=== PATIENT | female | born 1995 | race Hispanic/Latino ===

== ENCOUNTER 2016-12-20 09:59 | Inpatient (IN) | payer MEDICAID ==
[2016-12-20 10:03] VITALS: BMI 26.6
[2016-12-20 11:21] LABS: BASO # 0.1 K/uL (0.0-0.2); BASO % 0.6 % (0.0-2.0); EOS # 0.1 K/uL (0.0-0.7); HEMATOCRIT 44.4 % (34.0-47.0); LYMPH # 2.4 K/uL (1.0-4.3); LYMPH % 27.2 % (20.0-40.0); MEAN CELL VOLUME 90.5 fl (81.0-99.0); MEAN CORPUSCULAR HEMOGLOBIN 29.9 pg (27.0-31.0); MEAN PLATELET VOLUME 9.9 fl (7.2-11.7); MONO # 0.6 K/uL (0.0-0.8); MONO % 6.7 % (0.0-10.0); NEUT # 5.8 K/uL (1.8-7.0); NEUT % 64.5 % (50.0-75.0); RED CELL DISTRIBUTION WIDTH 13.6 % (11.5-14.5); WHITE BLOOD COUNT 8.9 K/uL (4.8-10.8)
[2016-12-20 11:32] LABS: ALB/GLOB RATIO 1.2 (1.0-2.1); ALCOHOL SERUM < 10 mg/dl (0-10); ALKALINE PHOSPHATASE 74 U/L (38-126); ALT/SGPT 26 U/L (9-52); AST/SGOT 31 U/L (14-36); BILIRUBIN,TOTAL 0.7 mg/dl (0.2-1.3); BLOOD UREA NITROGEN 11 mg/dl (7-17); CALCIUM 9.8 mg/dL (8.4-10.2); CARBON DIOXIDE 23 mmol/L (22-30); CHLORIDE 104 mmol/L (98-107); GFR AFRICAN-AMERICAN > 60; GLUCOSE,RANDOM 91 mg/dL (65-105); SODIUM 141 mmol/l (132-148); TOTAL PROTEIN 8.9 G/DL (6.3-8.2)
[2016-12-20 11:34] LABS: RBC URINE 1 /hpf (0-3); URINE BACTERIA RARE (<OCC); URINE BILIRUBIN NEGATIVE (NEGATIVE); URINE BLOOD NEGATIVE (NEGATIVE); URINE COLOR YELLOW (YELLOW); URINE GLUCOSE (UA) NEG (Normal); URINE KETONE NEGATIVE (NEGATIVE); URINE PROTEIN NEGATIVE (NEGATIVE); URINE UROBILINOGEN 0.2-1.0 mg/dL (0.2-1.0); WBC URINE 1 /hpf (0-5)
[2016-12-20 11:34] LABS: POTASSIUM 4.6 MMOL/L (3.6-5.0)
[2016-12-20 11:35] LABS: URINE LEUKOCYTE ESTERASE NEGATIVE Leu/uL (Negative)
[2016-12-20] MEDS ORDERED: Gadodiamide 287 MG/ML VIAL (15ML) IV ONE (11:56)
--- NOTE | 2016-12-20 12:10 | CP.PCM.CON ---
History of Present Illness - History of Present Illness History of Present Illness: Ms. Chester is a 21-year-old woman with a past medical history of migraine headaches, who states that she woke up [place] morning at around 6 AM with blurry vision. She also complains of having an associated headache located in the frontal region that is throbbing, and was similar to her previous headaches. She has associated nausea, gait instability and complains of generalized weakness. She denied vomiting, double vision, chest pain, shortness of breath, abdominal pain, GI discomfort, focal weakness, sensory changes, joint pain, recent travel, fever or changes in her diet. Review of Systems - Constitutional Constitutional: Headache, Lethargy, Weakness. absent: As Per HPI, Anorexia, Chills, Daytime Sleepiness, Excessive Sweating, Fatigue, Fever, Frequent Falls, Increased Appetite, Malaise, Night Sweats, Snoring, Sleep Apnea, Weight Gain, Weight Loss, Other - EENT Eyes: absent: As Per HPI, Blind Spots, Blurred Vision, Change in Vision, Decreased Night Vision, Diplopia, Discharge, Dry Eye, Exophthalmos, Floaters, Irritation, Itchy Eyes, Loss of Peripheral Vision, Pain, Photophobia, Requires Corrective Lenses, Sees Flashes, Spots in Vision, Tunnel Vision, Other Visual Disturbances, Loss of Vision, Other Ears: absent: As Per HPI, Decreased Hearing, Ear Discharge, Ear Pain, Tinnitus, Abnormal Hearing, Disequilibrium, Dizziness, Other Nose/Mouth/Throat: absent: As Per HPI, Epistaxis, Nasal Congestion, Nasal Discharge, Nasal Obstruction, Nasal Trauma, Nose Pain, Post Nasal Drip, Sinus Pain, Sinus Pressure, Bleeding Gums, Change in Voice, Dental Pain, Dry Mouth, Dysphagia, Halitosis, Hoarsness, Lip Swelling, Mouth Lesions, Mouth Pain, Odynophagia, Sore Throat, Throat Swelling, Tongue Swelling, Facial Pain, Neck Pain, Neck Mass, Other - Cardiovascular Cardiovascular: absent: As Per HPI, Acrocyanosis, Chest Pain, Chest Pain at Rest , Chest Pain with Activity, Claudication, Diaphoresis, Dyspnea, Dyspnea on Exertion, Edema, Irregular Heart Rhythm, Pain Radiating to Arm/Neck/Jaw, Leg Edema, Leg Ulcers, Lightheadedness, Orthopnea, Palpitations, Paroxysmal Nocturnal Dyspnea, Pedal Edema, Radiating Pain, Rapid Heart Rate, Slow Heart Rate, Syncope, Other - Respiratory Respiratory: absent: As Per HPI, Cough, Dyspnea, Hemoptysis, Dyspnea on Exertion , Wheezing, Snoring, Stridor, Pain on Inspiration, Chest Congestion, Excessive Mucous Production, Change in Mucous Color, Pain with Coughing, Other - Gastrointestinal Gastrointestinal: Nausea - Genitourinary Genitourinary: absent: As Per HPI, Change in Urinary Stream, Difficulty Urinating, Dysuria, Flank Pain, Hematuria, Pyuria, Nocturia, Urinary Incontinence, Urinary Frequency, Urinary Hesitance, Urinary Urgency, Voiding Freq/Small Amts, Freq UTI, Hx Renal/Bladder Calculi, Hx /Renal Surgery, Bladder Distension, Other - Musculoskeletal Musculoskeletal: absent: As Per HPI, Abnormal Gait, Arthralgias, Atrophy, Back Pain, Deformity, Joint Swelling, Limited Range of Motion, Loss of Height, Muscle Cramps, Muscle Weakness, Myalgias, Neck Pain, Numbness, Radiating Pain into Limb, Stiffness, Tingling, Other - Integumentary Integumentary: absent: As Per HPI, Acne, Alopecia, Bleeding Lesions, Change in Hair, Change in Nails, Change in Pigmentation, Changing Lesions, Dry Skin, Erythema, Furuncle, Hirsutism, Lesions, New Lesions, Non-Healing Lesions, Photosensitivity, Pruritus, Rash, Skin Pain, Skin Ulcer, Sores, Striae, Swelling , Unusual Bruising, Wounds, Jaundice, Other - Neurological Neurological: As Per HPI - Psychiatric Psychiatric: absent: As Per HPI, Abnormal Sleep Pattern, Anhedonia, Anxiety, Auditory Hallucinations, Behavioral Changes, Change in Appetite, Change in Libido, Confusion, Depression, Difficulty Concentrating, Hallucinations, Homicidal Ideation, Hopelessness, Irritability, Memory Loss, Mood Swings, Panic Attacks, Paranoia, Suicidal Ideation, Visual Hallucinations, Tactile Hallucinations, Other - Endocrine Endocrine: absent: As Per HPI, Change in Body Appearance, Change in Libido, Cold Intolorance, Deepening of Voice, Excessive Sweating, Fatigue, Flushing, Heat Intolorance, Increase in Ring/Shoe/Hat Size, Palpitations, Polydipsia, Polyphagia, Polyuria, Other - Hematologic/Lymphatic Hematologic: absent: As Per HPI, Easy Bleeding, Easy Bruising, Lymphadenopathy, Other Past Patient History - Past Social History Smoking Status: Never Smoked - CARDIAC Hx Cardiac Disorders: No - PULMONARY Hx Respiratory Disorders: No - NEUROLOGICAL Hx Neurological Disorder: No - HEENT Hx HEENT Problems: No - RENAL Hx Chronic Kidney Disease: No - ENDOCRINE/METABOLIC Hx Endocrine Disorders: No - HEMATOLOGICAL/ONCOLOGICAL Hx Blood Disorders: No - INTEGUMENTARY Hx Dermatological Problems: No - MUSCULOSKELETAL/RHEUMATOLOGICAL Hx Musculoskeletal Disorders: No - GASTROINTESTINAL Hx Gastrointestinal Disorders: No - GENITOURINARY/GYNECOLOGICAL Hx Genitourinary Disorders: No - PSYCHIATRIC Hx Psychophysiologic Disorder: No Hx Substance Use: No - SURGICAL HISTORY Hx Surgeries: No - ANESTHESIA Hx Anesthesia: No Meds Allergies/Adverse Reactions: Allergies Allergy/AdvReac Type Severity Reaction Status Date / Time No Known Allergies Allergy Verified 12/20/16 10:13 Physical Exam - Constitutional Appears: Well - Head Exam Head Exam: ATRAUMATIC, NORMAL INSPECTION, NORMOCEPHALIC - Eye Exam Additional comments: Left eye deficits with conjugate gaze. - Neck Exam Neck exam: Positive for: Normal Inspection - Respiratory Exam Respiratory Exam: Clear to Auscultation Bilateral, NORMAL BREATHING PATTERN - Cardiovascular Exam Cardiovascular Exam: REGULAR RHYTHM, +S1, +S2 - GI/Abdominal Exam GI & Abdominal Exam: Normal Bowel Sounds, Soft. absent: Tenderness - Rectal Exam Rectal Exam: Deferred - Extremities Exam Extremities exam: Positive for: normal inspection - Back Exam Back exam: NORMAL INSPECTION - Neurological Exam Neurological exam: Abnormal Gait, Oriented x3, Reflexes Normal - Expanded Neurological Exam Expanded Patient oriented to: person, place, time Cranial nerves: EOM's Intact: Abnormal Left, Facial Palsey w/Forehead Movement: Abnormal Left, Facial Sensation: Normal Ataxia: No Cerebellar Function: Finger to Nose: Abnormal Right, Heel to [place]: Normal Upper motor neuron: Babinski Sign: Normal, Simón Neglect: Normal Sensory exam: Lower Extremity Light Touch: Normal, Lower Extremity Pin Prick: Normal, Upper Extremity Light Touch: Normal, Upper Extremity Pin Prick: Normal Neuro motor strength exam: Left Upper Extremity: 5, Right Upper Extremity: 5, Left Lower Extremity: 5, Right Lower Extremity: 5 DTR: Achilles Tendon Left: 2+, Achilles Tendon Right: 2+, Bicep Left: 2+, Bicep Right: 2+, Brachioradialis Left: 2+, Brachioradialis Right: 2+, Patellar Left: 2 +, Patellar Right: 2+, Tricep Left: 2+, Tricep Right: 2+ - Psychiatric Exam Psychiatric exam: Normal Affect, Normal Mood - Skin Skin Exam: Dry, Intact, Normal Color, Warm Results - Vital Signs Recent Vital Signs: Last Vital Signs Temp 99.7 F H 12/20/16 10:01 Pulse 95 H 12/20/16 10:01 Resp 20 12/20/16 10:01 BP 142/83 12/20/16 10:01 Pulse Ox 99 12/20/16 10:01 - Labs Result Diagrams: 12/20/16 10:05 12/20/16 11:00 Labs: Laboratory Results - last 24 hr 12/20/16 12/20/16 12/20/16 10:05 10:05 11:00 WBC 8.9 RBC 4.90 Hgb 14.7 Hct 44.4 MCV 90.5 MCH 29.9 MCHC 33.0 RDW 13.6 Plt Count 309 MPV 9.9 Neut % (Auto) 64.5 Lymph % (Auto) 27.2 [place] % (Auto) 6.7 Eos % (Auto) 1.0 Baso % (Auto) 0.6 Neut # 5.8 Lymph # 2.4 [place] # 0.6 Eos # 0.1 Baso # 0.1 Sodium 141 Potassium 4.6 Chloride 104 Carbon Dioxide 23 Anion Gap 19 BUN 11 Creatinine 0.7 Est GFR ( Amer) > 60 Est GFR (Non-Af Amer) > 60 Random Glucose 91 Calcium 9.8 Total Bilirubin 0.7 AST 31 ALT 26 Alkaline Phosphatase 74 Total Protein 8.9 H Albumin 4.8 Globulin 4.1 H Albumin/Globulin Ratio 1.2 Urine Color Yellow Urine Clarity Slighty-cloudy Urine pH 7.0 Ur Specific [place] 1.015 Urine Protein Negative Urine Glucose (UA) Neg Urine Ketones Negative Urine Blood Negative Urine Nitrate Negative Urine Bilirubin Negative Urine Urobilinogen 0.2-1.0 Ur Leukocyte Esterase Negative Urine RBC (Auto) 1 Urine Microscopic WBC 1 Ur Squamous Epith Cells 1 Urine Bacteria Rare Urine Opiates Screen Urine Methadone Screen Ur Barbiturates Screen Ur Phencyclidine Scrn Ur Amphetamines Screen U Benzodiazepines Scrn U Oth Cocaine Metabols U Cannabinoids Screen Alcohol, Quantitative < 10 12/20/16 11:00 WBC RBC Hgb Hct MCV MCH MCHC RDW Plt Count MPV Neut % (Auto) Lymph % (Auto) [place] % (Auto) Eos % (Auto) Baso % (Auto) Neut # Lymph # [place] # Eos # Baso # Sodium Potassium Chloride Carbon Dioxide Anion Gap BUN Creatinine Est GFR ( Amer) Est GFR (Non-Af Amer) Random Glucose Calcium Total Bilirubin AST ALT Alkaline Phosphatase Total Protein Albumin Globulin Albumin/Globulin Ratio Urine Color Urine Clarity Urine pH Ur Specific [place] Urine Protein Urine Glucose (UA) Urine Ketones Urine Blood Urine Nitrate Urine Bilirubin Urine Urobilinogen Ur Leukocyte Esterase Urine RBC (Auto) Urine Microscopic WBC Ur Squamous Epith Cells Urine Bacteria Urine Opiates Screen Negative Urine Methadone Screen Negative Ur Barbiturates Screen Negative Ur Phencyclidine Scrn Negative Ur Amphetamines Screen Negative U Benzodiazepines Scrn Negative U Oth Cocaine Metabols Negative U Cannabinoids Screen Negative Alcohol, Quantitative Assessment & Plan (1) Blurry vision Assessment and Plan: She has difficulty with conjugate gaze, which is concerning for possible involvement of the pontine region and MLF. She also complaints of feeling unstable and having generalized weakness. We will evaluate for an inflammatory , demyelinating condition with an MRI of the brain with and without contrast. If negative, this can be related to her migraine headache and be a complicated migraine syndrome, which we will treat accordingly. Status: Acute (2) Headache Status: Acute Priority: High (3) Gait instability Status: Acute Priority: High (4) Nausea Status: Acute Priority: High
--- NOTE | 2016-12-20 13:11 | MRI ---
PROCEDURE: MRI BRAIN WITH AND WITHOUT CONTRAST HISTORY: blurry vision, nystagmus COMPARISON: None. TECHNIQUE: Multiplanar, multisequence MR images of the brain were obtained with and without intravenous contrast enhancement. FINDINGS: HEMORRHAGE: None DWI: No evidence of an acute or early subacute infarction. BRAIN PARENCHYMA: No mass,mass effect or edema. There are multifocal white matter signal abnormalities the largest in the left frontal subcortical white matter measuring 8 millimeters. An additional lesion measuring 7 millimeters is present at the left parietal and great white matter junction. There is also a lesion noted in the right cerebellar peduncle measuring 3 millimeters. ENHANCEMENT: No abnormal intracranial enhancement. VENTRICLES: Unremarkable. No hydrocephalus. CRANIUM: Unremarkable. ORBITS: Grossly unremarkable. PARANASAL SINUSES/MASTOIDS: Clear VASCULAR SYSTEM: Skull base flow voids intact. OTHER FINDINGS: None . IMPRESSION: Multiple supra tentorial as well as infratentorial white matter lesions, statistically most likely secondary to multiple sclerosis in a patient of this age group.
[2016-12-20] MEDS ORDERED: Lidocaine 1% Inj (20ml) IJ ONE (14:47)
[2016-12-20 15:28] LABS: FLUID TYPE SPINAL FLUID
--- NOTE | 2016-12-20 15:30 | ED PDOC ---
HPI: General Adult Time Seen by Provider: 12/20/16 10:13 Chief Complaint (Nursing): Dizziness/Lightheaded Chief Complaint (Provider): dizziness, blurry vision History Per: Patient History/Exam Limitations: no limitations Onset/Duration Of Symptoms: Days (3), Sudden Onset Similar Symptoms Previously: none Additional Complaint(s): 21yo female prior well sent by PMD Dr Miranda into ED for persistent dizziness associated with blurry vision- states vision is entire visual field, denies diplopia, tinnutus, fever, trauma or neck pain. States this morning had difficult time walking due to visual deficit but denies falls, incoordination, change in speech or swallowing. Denies prior history of similar. Does admit to mild headache. Currently a [employer] student. Past Medical History Reviewed: Historical Data, Nursing Documentation, Vital Signs Vital Signs: Last Vital Signs Temp 98.6 F 12/20/16 13:15 Pulse 75 12/20/16 13:15 Resp 16 12/20/16 13:15 BP 124/74 12/20/16 13:15 Pulse Ox 99 12/20/16 13:15 - Medical History PMH: No Chronic Diseases Denies: Chronic Kidney Disease - Surgical History Surgical History: No Surg Hx - Family History Family History: States: Other - Living Arrangements Living Arrangements: With Family - Social History Current smoker - smoking cessation education provided: No Drugs: Denies - Home Medications Home Medications: Ambulatory Orders Medication Instructions Recorded No Known Home Med 12/20/16 - Allergies Allergies/Adverse Reactions: Allergies Allergy/AdvReac Type Severity Reaction Status Date / Time No Known Allergies Allergy Verified 12/20/16 10:13 Review of Systems ROS Statement: Except As Marked, All Systems Reviewed And Found Negative Constitutional: Negative for: Fever, Chills Eyes: Positive for: Vision Change. Negative for: Pain, Eyelid Inflammation, Redness ENT: Negative for: Ear Pain, Nose Discharge, Throat Pain, Throat Swelling Cardiovascular: Negative for: Chest Pain, Palpitations Respiratory: Negative for: Cough, Shortness of Breath Gastrointestinal: Negative for: Nausea, Vomiting, Abdominal Pain, Diarrhea Genitourinary Female: Negative for: Frequency Musculoskeletal: Negative for: Neck Pain, Shoulder Pain, Leg Pain Skin: Negative for: Rash, Lesions, Jaundice Neurological: Positive for: Headache, Dizziness. Negative for: Weakness, Numbness Psych: Negative for: Anxiety, Depression Physical Exam - Reviewed Nursing Documentation Reviewed: Yes Vital Signs Reviewed: Yes - Physical Exam Appears: Positive for: Well, Non-toxic, No Acute Distress Head Exam: Positive for: ATRAUMATIC, NORMAL INSPECTION, NORMOCEPHALIC Skin: Positive for: Normal Color, Warm, DRY Eye Exam: Positive for: EOMI, Normal appearance, PERRL ENT: Positive for: Normal ENT Inspection Neck: Positive for: Normal, Painless ROM Cardiovascular/Chest: Positive for: Regular Rate, Rhythm Respiratory: Positive for: CNT, Normal Breath Sounds Gastrointestinal/Abdominal: Positive for: Bowel Sounds, Soft. Negative for: Tenderness Back: Positive for: Normal Inspection Extremity: Positive for: Normal ROM DTR - Knee (R): 1+ DTR - Knee (L): 1+ Neurologic/Psych: Positive for: Alert, Oriented, Cerebellar Tests (intact finger to nose and heel to kenny b/l), Other (?conjugate gaze palsy L). Negative for: regular senior care provider II-XII (? conjugate gaze palsy vs nystagmus), Motor/Sensory Deficits, Facial Droop - Laboratory Results Result Diagrams: 12/20/16 10:05 12/20/16 11:00 - ECG O2 Sat by Pulse Oximetry: 99 Medical Decision Making Medical Decision Making: workup initiated for acute visual disturbance, d/w Dr Danielson neurology who recommended MRI w/ wo contrast. Labs reviewed, mild elev serum protein\ MRI results reviewed, Dr Danielson saw patient in ED and discussed MRI results w patient- possible multiple sclerosis. LP recommended by neurology. Procedure note: Lumbar puncture Time out performed Consent obtained and signed, witnessed, in chart after risks/benefits explained. Sterile technique used throughout, chlorhexidine then betadine prep. Lidocaine 1% 6ml infiltrated into L3L4 interspace Spinal needle 20g inserted and on second attempt CSF obtained, clear, 4 tubes obtained, stylet replaced and needle withdrawn. Placed supine. Dr Danielson placed orders for CSF Care transferred to PMD Dr Miranda and Dr Danielson neuro. Admit med surg. Disposition - Clinical Impression Clinical Impression: Multiple sclerosis, Vision loss - Patient ED Disposition Is Patient to be Admitted: Yes Counseled Patient/Family Regarding: Studies Performed, Diagnosis - Disposition Disposition Time: 13:01 Condition: FAIR - Pt Status Changed To: Hospital Disposition Of: Inpatient - Admit Certification Admit to Inpatient:: After my assessment, the patient will require hospitalization for at least two midnights. This is because of the severity of symptoms shown, intensity of services needed, and/or the medical risk in this patient being treated as an outpatient. - POA Present On Arrival: None
[2016-12-20] MEDS: methylPREDNISolone 1 GM in Sodium Chloride 0.9% 250 ML IV SCH (16:04)
[2016-12-20 16:50] LABS: CSF COMMENT CLEAR
[2016-12-20 18:01] LABS: CSF NEUTROPHIL 0 % (0-0); CSF TOTAL COUNT 2 (0-0)
--- NOTE | 2016-12-21 08:43 | CARD ---
APPROVED REPORT EKG Measurement Heart [id number] <Conclusion> Normal sinus rhythm with sinus arrhythmia Normal ECG
[2016-12-21] MEDS ORDERED: Gadodiamide 287 MG/ML VIAL (15ML) IV ONE (10:11)
--- NOTE | 2016-12-21 10:16 | HP ---
HISTORY OF PRESENT ILLNESS: This is a 21-year-old [place] female with no significant past medical history, presented with symptoms of blurred vision, dizziness and inability to get out of bed on the day of admission. The patient was evaluated in the emergency room and she was found also to have nystagmus and the patient had an MRI of the head done with and without contrast as well as neurology consult by Dr. Danielson. The patient's MRI found that she has plaques suggestive for multiple sclerosis. The patient had also lumbar puncture and admitted for further management. As per the patient's father that she has been having sporadic symptoms of arm numbness as well as dizziness and palpitation during the last year and the patient has seen different physicians for different nonspecific symptoms, but no diagnosis was given. REVIEW OF SYSTEMS: Other review of system is negative. ALLERGIES: NO KNOWN ALLERGIES. MEDICATIONS: None. SOCIAL HISTORY: No history of smoking, EtOH, or substance abuse. FAMILY HISTORY: Not contributory. PHYSICAL EXAMINATION GENERAL: The patient is in bed, comfortable at the time of this examination, but she feels dizzy and more of vertigo like symptoms. VITAL SIGNS: Blood pressure 124/74, temperature 98.6, respiratory rate 16, and pulse 75. HEENT: Pupils equal, reactive to light. Normal-appearing mucosa of the conjunctivae, oropharynx and nasal membrane mucosa. NECK: Supple. No JVD. No carotid bruit. No lymph node. No thyromegaly. CHEST AND LUNGS: Bilateral symmetrical expansion. Good air exchange. No rales, no rhonchi. CARDIOVASCULAR SYSTEM: PMI not localized. S1, S2. No additional sounds. ABDOMEN: Normoactive bowel sounds. No tenderness. No organomegaly. No masses. EXTREMITIES: No cyanosis, no clubbing, no edema. COIN BOX INSPECTOR: Alert, awake, and oriented x3. No neurological deficit could be appreciated except for the nystagmus that was noticed during the eye examination, but there are no long tract deficits. No motor or sensory deficits could be appreciated during this examination. ASSESSMENT: Possible multiple sclerosis. PLAN: The patient was started on IV pulse therapy of steroid. Pepcid 20 mg twice a day for precautions. Neuro check every 4 hours. Physical therapy and follow Neurology recommendations. Discussed the patient's condition with Neurologist as well as well with the patient's parents. [facility] MD [facility] # [id number]
[2016-12-21] MEDS: methylPREDNISolone 1 GM in Sodium Chloride 0.9% 250 ML IV SCH (11:48)
--- NOTE | 2016-12-21 12:32 | MRI ---
PROCEDURE: MR THORACIC SPINE WITH AND WITHOUT CONTRAST HISTORY: New Onset MS COMPARISON: None available. TECHNIQUE: Multiecho multiplanar sequences were performed through the thoracic spine with and without the use of intravenous contrast. FINDINGS: ALIGNMENT: Normal thoracic spinal alignment. Normal thoracic kyphosis. VERTEBRA: Vertebral body height are preserved. MARROW: Marrow signal unremarkable. PARASPINAL SOFT TISSUES: Unremarkable. CORD: Thoracic spinal cord appears normal in course caliber and contour and intrinsic signal including the conus medullaris which terminates at the upper L1 level. Following intravenous contrast administration, there is no abnormal epidural or intrathecal enhancement appreciated. DISCS: No disc herniation, spinal canal stenosis, or neuroforaminal narrowing. ENHANCEMENT: No abnormal enhancement. OTHER FINDINGS: None. IMPRESSION: Normal thoracic spine MRI prior to and following intravenous gadolinium administration.
--- NOTE | 2016-12-21 14:12 | MRI ---
PROCEDURE: MR CERVICAL SPINE WITH AND WITHOUT CONTRAST HISTORY: New Onset MS COMPARISON: None available. TECHNIQUE: Multiecho multiplanar sequences were performed through the cervical spine with and without the use of intravenous contrast. 50 cc of Omniscan was intravenously administered for contrast enhanced series. FINDINGS: There is a minimal reversal the cervical curvature. No fracture or spondylolisthesis identified. There is no suspicious marrow signal change evident. Mild degenerative disc desiccation is appreciated several upper cervical intervertebral discs with remainder well-hydrated. To body heights are normal. The cervical spinal cord is normal in course caliber and contour. There is a questionable small T3 left cervical cord long TR hyper intensity only a few mm size but this is seen only in the solitary axial section in the axial T6-2 series 7, image 15, also in series 8, image 14. This is not identified on the sagittal T2 series with T1 imaging unremarkable throughout including post gadolinium enhanced imaging. C2-3: No disc herniation, spinal canal stenosis or neural foraminal narrowing. C3-4: No disc herniation, spinal canal stenosis or neural foraminal narrowing. C4-5: No disc herniation, spinal canal stenosis or neural foraminal narrowing. Minimal disc bulging is appreciated here. C5-C6: No disc herniation, spinal canal stenosis or neural foraminal narrowing. C6-C7: No disc herniation, spinal canal stenosis or neuroforaminal narrowing. C7-T1: No disc herniation, spinal canal stenosis or neural foraminal narrowing. OTHER FINDINGS: None. IMPRESSION: Borderline positive 2-3 mm demyelination plaque at the left posterior C3 cord level seen only in the axial long TR weighted sequences. No abnormal intrathecal or epidural enhancement throughout the examination. Minimal disc bulging C4-5 without significant stenosis resulting.
--- NOTE | 2016-12-21 15:15 | CP.PCM.PN ---
Subjective - Date & Time of Evaluation Date of Evaluation: 12/21/16 Time of Evaluation: 15:10 - Subjective Subjective: Ms. Chester was seen and examined today at bedside. She states that she had a little trouble with sleep and complained of a mild headache. She also admitted to improvement in her vision and overall energy/strength. There were no acute events overnight. Objective - Vital Signs/Intake and Output Vital Signs (last 24 hours): Temp Pulse Resp BP Pulse Ox 97.5 F L 102 H 20 108/66 96 12/21/16 08:06 12/21/16 08:06 12/21/16 08:06 12/21/16 08:06 12/21/16 08:06 - Medications Medications: Current Medications Acetaminophen (Tylenol 325mg Tab) 650 mg PO Q6 PRN PRN Reason: Headache Methylprednisolone 1 gm/ (Sodium Chloride) 250 mls @ 500 mls/hr IV DAILY TREY Stop: 12/22/16 09:29 Last Admin: 12/21/16 11:48 Dose: 500 mls/hr - Neurological Exam Neurological Exam: Alert, Awake, Normal Gait, Oriented x3 Neuro motor strength exam: Left Upper Extremity: 5, Right Upper Extremity: 5, Left Lower Extremity: 5, Right Lower Extremity: 5 Additional comments: Similar nystagmus of left eye along with abnormal conjugate gaze. Subjective improvement in vision. Assessment and Plan (1) Blurry vision Assessment & Plan: Improving with Solumedrol, will continue plan for 3 days of treatment. Status: Acute (2) Headache Assessment & Plan: She states that it is 3/10 in severity and constant. Will attempt to treat it with magnesium sulfate 2 grams IV once. Status: Acute (3) Multiple sclerosis Assessment & Plan: With the additional finding of a cervical cord lesion, it makes the diagnosis of MS more likely. Will continue treatment with IV solumedrol and start PT/OT with a plan for outpatient neurological follow up and starting a prophylactic medication. Status: Acute
[2016-12-21] MEDS ORDERED: Magnesium Sulfate 2 gm/50 ml 2 GM/50 ML BAG IVPB ONE (15:30)
[2016-12-21] MEDS ORDERED: Nystatin 100,000 Units/ml Oral Susp 5 ml UD PO PRN (21:12)
--- NOTE | 2016-12-22 08:17 | PN ---
DATE: 12/21/2016 SUBJECTIVE: The patient had slight improvement in the blurred vision and dizziness. The patient complained of mild headache with a pain of 3/10. PHYSICAL EXAMINATION: VITAL SIGNS: Blood pressure is 115/71, temperature 97.6, respiratory rate 18, and pulse is 90. HEENT: Pupils equal and reactive to light. Normal appearing mucosa of the conjunctivae, oropharynx, and nasal membrane mucosa. NECK: Supple. No JVD. No carotid bruits. No lymph node. No thyromegaly. CHEST AND LUNGS: Bilateral symmetrical expansion. Good air exchange. No rales. No rhonchi. CARDIOVASCULAR: PMI not localized. S1 and S2. No additional sounds. ABDOMEN: Normoactive bowel sounds. No tenderness. No organomegaly. No masses. EXTREMITIES: No cyanosis. No clubbing. No edema. CENTRAL NERVOUS SYSTEM: Alert, awake, and oriented x3. 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 Peripheral pulses . ASSESSMENT: Possible multiple sclerosis, presented with blurred vision, likely secondary to optic neuritis as well as clinical findings of internuclear ophthalmoplegia. PLAN: Continue the Solu-Medrol and follow recommendations of Neurology. Follow sent yesterday. Arvin Miranda MD
[2016-12-22 08:22] VITALS: BP 105/59; PULSE 79; RESP 18; TEMP 98; O2SAT 95
[2016-12-22] MEDS: methylPREDNISolone 1 GM in Sodium Chloride 0.9% 250 ML IV SCH (11:27)
--- NOTE | 2016-12-22 11:59 | CP.PCM.PN ---
Subjective - Date & Time of Evaluation Date of Evaluation: 12/22/16 Time of Evaluation: 11:56 - Subjective Subjective: Ms. Chester was seen and examined today at bedside. She was found in NAD. There were no acute events overnight. She stated that her vision, headache and gait have improved with the first two doses of solumedrol. She is to receive another dose today and be discharged for neurology clinic follow up to discuss starting prophylactic medications. Objective - Vital Signs/Intake and Output Vital Signs (last 24 hours): Temp Pulse Resp BP Pulse Ox 98 F 79 18 105/59 L 95 12/22/16 08:21 12/22/16 08:21 12/22/16 08:21 12/22/16 08:21 12/22/16 08:21 - Medications Medications: Current Medications Acetaminophen (Tylenol 325mg Tab) 650 mg PO Q6 PRN PRN Reason: Headache Nystatin (Nystatin Oral Susp) 5 ml PO Q6H PRN PRN Reason: Cough Last Admin: 12/21/16 22:16 Dose: 5 ml - Neurological Exam Neurological Exam: Awake, CN II-XII Intact, Normal Gait, Oriented x3 Neuro motor strength exam: Left Upper Extremity: 5, Right Upper Extremity: 5, Left Lower Extremity: 5, Right Lower Extremity: 5 Additional comments: Right visual field continues to have slight visual skew Assessment and Plan (1) Blurry vision Assessment & Plan: Improving. Will give another dose of solumedrol today. Status: Acute (2) Headache Status: Resolved (3) Multiple sclerosis Assessment & Plan: Will discuss further management as an outpatient. She may need to be seen by a neuro-pediatric ophthalmologist for determining any involvement of the optic nerve. Status: Acute
[2016-12-22 20:07] LABS: ALBUMIN SERUM 4.3 g/dL (3.7-5.1)
[2016-12-23 00:16] LABS: ALBUMIN CSF 19.5 mg/dL (8.0-42.0); IGG CSF 3.1 mg/dL (0.8-7.7)
[2016-12-23 01:02] LABS: IGG INDEX CSF 0.45 (<0.66); SYNTHESIS RATE IGG CSF -5.7 mg/24 h (-9.9-3.3)
--- NOTE | 2016-12-23 06:54 | DS ---
REASON FOR ADMISSION: This is a 21-year-old [place] female with no significant past medical history was admitted for acute onset of blurred vision and dizziness. COURSE OF HOSPITALIZATION: The patient was admitted, was evaluated in the emergency room and she had also an MRI of the head done as well as Neurology consult. The patient was believed to have early multiple sclerosis and she has multiple brain plaques as well as one spinal cord plaque. The patient was still having some blurred vision and the right gaze. As per Neurology recommendation, 1 g IV steroid was given to her for 3 days and the patient was discharged home to follow up with Dr. Danielson as well as her primary care physician. FINAL DIAGNOSIS: Possible multiple sclerosis. [facility] MD Ruben
== END 2016-12-22 14:29 | disposition home or self-care (01) | DRG 13 ==
LOC: H.ER 09:59 → H.ERHOLD 13:47 → H.MEDSURG1 16:22
PROVIDERS: ADMIT Internal Medicine; ATTEND Internal Medicine
PROC: 009U3ZX Drainage of Spinal Canal, Percutaneous Approach, Diagnostic (ICD-10-PCS; principal; 2016-12-20)
DX: G35 Multiple sclerosis (principal); H46.9 Unspecified optic neuritis; G43.909 Migraine, unspecified, not intractable, without status migrainosus; H51.20 Internuclear ophthalmoplegia, unspecified eye; H55.09 Other forms of nystagmus